=== PATIENT | male | born 2000 | race Two or more races ===

== ENCOUNTER 2024-12-09 03:14 | Emergency (ER) | payer SELFPAY ==
[2024-12-09 03:14] VITALS: BP 123/80; PULSE 84; RESP 20; TEMP 36.9; O2SAT 99; BMI 21.5
--- NOTE | 2024-12-09 03:30 | EDNOTE_ITS ---
ED Wound/Laceration-RME/HPI General Chief Complaint: Wound/Laceration Stated Complaint: LAC TO LEFT HAND Time Seen by Provider: 12/09/24 03:45 Arrival date/time: 12/09/24 03:14 RME / HPI RME / HPI narrative: This section includes all my notes and documentations, including HPI, PE, and ED course. Martín Holt MD HPI: 24 y/o male presents with actively bleeding laceration to the left hand s/p cutting himself with a [employer] x just [employer]. Patient was cutting wood while working on his shed. Denies any other injury. Can move and feel the thumb and fingers normally. No other complaints. ROS: All negative except as documented in HPI. Physical Exam: General: Alert and oriented. No acute distress. Eyes: Conjunctivae and lids clear. Lungs: No respiratory distress. Skin: Warm and dry. Neuro: Alert and oriented X 3. Left Hand: In the first web, there is a 4 cm full?skin thickness laceration with active bleeding. No NVT injury. At this point, diagnoses include: Laceration of left hand Treatment here included: Wound care, laceration repair, Augmentin, Tdap, ibuprofen, and two Tylenol #3. Laceration repair procedure note: The wound was prepped and draped in normal sterile fashion. Local anesthesia achieved with 1% lidocaine, 10 mL. Profuse irrigation performed with normal saline. Wound repaired with 7 simple sutures using 3-0 nylon. Good approximation and hemostasis achieved. No DVT injury. Topical ABX and dressing applied. Patient tolerated well with no complications. Significant improvement noted. Provided good wound care instructions. Based on my best medical judgment, made decision no further evaluation or treatment indicated at this time. Patient understands and agrees to the discharge instructions customized and printed, see below. Discharge instructions from Dr. Holt:? -- Your laceration was repaired with 7 stitches. -- Keep the current dressing intact for 24 hours. -- After 24 hours, change the dressing once daily. -- First remove the dressing gently.? If it does not come off easily, run water through it until it comes off easily. -- Then gently wash with soap and water. -- After completely drying, apply antibiotic ointment and new dressing. -- Elevate above the heart level today and tomorrow as much as possible.? Placing the hand on the head is a good method. This is extremely important. -- See a private doctor on 12/11/2024 for recheck. To make sure you are healing without any complications. To make sure there is no more serious injury, including tendon injury. You don't want to take chances with losing function of your hand. -- See a private doctor or return here in 7 days for suture removal.? Total of 7 stitches. -- Seek immediate medical care with not being able to move your thumb and fingers normally, fever, spreading redness from the wound, or with any concerns. Martín Holt MD Related Data Previous Rx's ?Medication ?Instructions ?Recorded aspirin 81 mg chewable tablet 81 mg PO DAILY #30 tabs 07/11/21 acetaminophen 300 mg-codeine 30 mg 2 tab PO Q8H PRN pa in #20 tabs 12/09/24 tablet amoxicillin 875 mg-potassium 1 tab PO BID 3 days #6 ta bs 12/09/24 clavulanate 125 mg tablet ibuprofen 600 mg tablet 600 mg PO TID PRN fever or p ain 12/09/24 #30 tabs Allergies Allergy/AdvReac Type Severity Reaction Status Date / Time No Known Allergies Allergy Verified 07/09/21 14:30 Review of Systems Review of Systems Systems Reviewed: All systems reviewed, normal except as documented ED Exam Narrative Physical exam: Refer to HPI Course Quality Measures none Orders Category Date Time Status Wound Care [Wound Care] NOW Care 12/09/24 04:31 Active ACETAMINOPHEN w/COD 300-30 [Tylenol w/Cod #3] Med 12/09/24 04:30 Discontinued 2 tab PO X1 ONE Amoxicillin/Pot Clav 875 [Augmentin 875] Med 12/09/24 04:30 Discontinued 1 tab PO X1 ONE Ampicillin/Sulbac Inj [Unasyn Inj] 1.5 gm Med 12/09/24 04:10 Discontinued SODIUM CHLORIDE 0.9% (Popper) [Ns 0.9% (P)] 50 ml IV X1 Bacitracin Oint pkt Med 12/09/24 04:30 Discontinued 1 gm TOP X1 ONE Ibuprofen Tab [Motrin Tab] Med 12/09/24 04:30 Discontinued 600 mg PO X1 ONE Ketorolac Inj [Toradol Inj] Med 12/09/24 04:10 Discontinued 30 mg IVP X1 ONE Lidocaine 1% 20 ml [Xylocaine 1% 20 ML] Med 12/09/24 04:10 Discontinued 20 ml INFL X1 ONE Lidocaine 1% 20 ml [Xylocaine 1% 20 ML] Med 12/09/24 04:31 Discontinued 20 ml INFL X1 ONE MethylPREDNISolone.* [SoluMEDROL Inj] Med 12/09/24 04:10 Discontinued 125 mg IVP X1 ONE Morphine Inj Med 12/09/24 04:10 Discontinued 4 mg IVP X1 ONE Ondansetron Inj [Zofran Inj] Med 12/09/24 04:10 Discontinued 4 mg IVP X1 ONE Sodium Chloride 0.9% 1000 ml [Ns] 1,000 ml Med 12/09/24 04:10 Discontinued IV 999 mls/hr TET,DIP/PERT AC (Adult)-Tdap [Boostrix Adult (Tdap) Med 12/09/24 04:10 Discontinued Vacc] 0.5 ml IMI .ONCE ONE Vital Signs Vital signs: Vital Signs Temperature 98.4 F 12/09/24 03:14 Pulse Rate 84 12/09/24 03:14 Respiratory Rate 20 12/09/24 03:14 Blood Pressure 123/80 12/09/24 03:14 Pulse Oximetry (%) 99 12/09/24 03:14 Oxygen Delivery Method Room Air 12/09/24 03:14 PROCEDURES: Laceration Laceration 1: Site: hand Side (If applicable): left Size (cm): 4 Description: linear Depth: simple, single layer Local Anesthetic: lidocaine 1% Pre-repair: wound explored, irrigated extensively, deep structures intact, extensive debridement and wound margins revised Skin layer closed with: nylon Suture size (cm): 3-0 Number of sutures: 7 Technique: simple, interrupted Wound / Laceration MDM Narrative MDM Narrative:: Scribe Attestation: INancy, am scribing for and in the presence of Dr. Holt. Provider Notation: Although this document has been carefully reviewed, there may still be some phonetic and other typographical errors.? These errors are purely grammatical due to imperfections in the software program and should not be construed in any way to? compromise the substance of the patient's medical care during this visit. 24 y/o male presents with actively bleeding laceration to the left hand s/p cutting himself with a [employer] x just [employer]. Patient was cutting wood while working on his shed. Denies any other injury. Can move and feel the thumb and fingers normally. No other complaints. Patient data External records reviewed:: [facility] previous records (Reviewed prior ED records from 07/09/21. Patient was seen for COVID-19.) Clinical information provided by:: patient Social determinants that could affect healthcare access:: none Patient has the following chronic illnesses:: None reported How is presenting disease/condition affected by chronic disease/condition?: no chronic disease Evaluation data The following diagnostics were reviewed and interpreted by me:: other (specify) (N/A) Lab and/or radiology exams considered but not ordered:: None Interpretation Summary: N/A Medications / Prescriptions Medications or Prescriptions considered but not ordered:: None Medication administrations:: Medication Administration History Discontinued Medications Acetaminophen/Codeine Phosphate (Acetaminophen W/Cod 300-30 Tablet) 2 tab PO X1 ONE Stop: 12/09/24 04:31 Last Admin: 12/09/24 05:02 Dose: 2 tab Documented By: SHERWIN Amoxicillin/Clavulanate Potassium (Amoxicillin/Pot Clav 875 Tablet) 1 tab PO X1 ONE Stop: 12/09/24 04:31 Last Admin: 12/09/24 05:02 Dose: 1 tab Documented By: SHERWIN Bacitracin (Bacitracin Oint 1 Gm Packet) 1 gm TOP X1 ONE Stop: 12/09/24 04:31 Last Admin: 12/09/24 05:03 Dose: 1 gm Documented By: DT Diphtheria/Tetanus/Acell Pertussis (Diphth,Pertuss(Acell),Tet Vac 0.5 Ml Syr- Adult) 0.5 ml IMi .ONCE ONE Stop: 12/09/24 04:11 Last Admin: 12/09/24 05:05 Dose: 0.5 ml Documented By: DT Ampicillin Sodium/Sulbactam (Sodium 1.5 gm/ Sodium Chloride) 50 mls @ 100 mls/hr IV X1 ONE Stop: 12/09/24 04:11 Last Admin: 12/09/24 05:10 Dose: Not Given Documented By: DT Non-Admin Reason: Cancelled by Provider Sodium Chloride (Ns) 1,000 mls @ 999 mls/hr IV .Q1H1M ONE Stop: 12/09/24 05:10 Last Admin: 12/09/24 05:11 Dose: Not Given Documented By: DT Non-Admin Reason: Cancelled by Provider Ibuprofen (Ibuprofen Tab 600 Mg Tablet) 600 mg PO X1 ONE Stop: 12/09/24 04:31 Last Admin: 12/09/24 05:03 Dose: 600 mg Documented By: DT Ketorolac Tromethamine (Ketorolac Inj 30 Mg/Ml Vial) 30 mg IVP X1 ONE Stop: 12/09/24 04:11 Last Admin: 12/09/24 05:10 Dose: Not Given Documented By: DT Non-Admin Reason: Cancelled by Provider Lidocaine HCl (Lidocaine Hcl 1% 20 Ml Vial) 20 ml INFL X1 ONE Stop: 12/09/24 04:11 Last Admin: 12/09/24 05:10 Dose: Not Given Documented By: DT Non-Admin Reason: Cancelled by Provider Lidocaine HCl (Lidocaine Hcl 1% 20 Ml Vial) 20 ml INFL X1 ONE Stop: 12/09/24 04:32 Last Admin: 12/09/24 05:06 Dose: 20 ml Documented By: DT Comments: administered by dr. holt Methylprednisolone Sodium Succinate (Methylprednisolone Sod Succ 62.5 Mg/Ml 2ml Vial) 125 mg IVP X1 ONE Stop: 12/09/24 04:11 Last Admin: 12/09/24 05:10 Dose: Not Given Documented By: DT Non-Admin Reason: Cancelled by Provider Morphine Sulfate (Morphine Sulf Inj 10 Mg/Ml Vial) 4 mg IVP X1 ONE Stop: 12/09/24 04:11 Last Admin: 12/09/24 05:11 Dose: Not Given Documented By: DT Non-Admin Reason: Cancelled by Provider Ondansetron HCl (Ondansetron Inj 2 Mg/Ml Inj 2 Ml) 4 mg IVP X1 ONE; Protocol Stop: 12/09/24 04:11 Last Admin: 12/09/24 05:11 Dose: Not Given Documented By: DT Non-Admin Reason: Cancelled by Provider Treatment here included: Wound care, laceration repair, Augmentin, Tdap, ibuprofen, and two Tylenol #3. Consultations Consultation(s) initiated? (list below): No Diagnosis Wound Differential Diagnosis: laceration, abrasion and avulsion of skin Most likely diagnosis given after review of the tests above:: Laceration of left hand Admission Indicated Admission indicated?: not indicated Explain why admission is indicated or not indicated:: With significant improvement and no condition needing emergent intervention, there was no indication for admission. Admission Request Was there a request for admission?: No Disposition Plan Disposition Plan: Discharge Discharge Attestation Discharge Attestation: The patient and all family members were given an opportunity to ask questions and understood the discharge instructions. Discharge instructions specifically effects, indications for sooner follow up or return to the emergency department, and the expected course of current diagnosis. Patient condition: Stable Discharge Plan Plan Patient Disposition: HOME (Self Care) Prescriptions/Referrals Prescriptions/Med Rec: New acetaminophen-codeine 300-30 mg tablet 2 tab PO Q8H MDD 6 PRN (Reason: pain) Qty: 20 0RF ibuprofen 600 mg tablet 600 mg PO TID PRN (Reason: fever or pain) Qty: 30 0RF amoxicillin-pot clavulanate 875-125 mg tablet 1 tab PO BID 3 Days Qty: 6 0RF No Action aspirin 81 mg Tablet,Chewable 81 mg PO DAILY Qty: 30 0RF Problem List Clinical Impression: Laceration of left hand Patient/Caregiver Discharge Instructions Discharge Activity: activity as tolerated Education Materials: ED Laceration, Hand: All Closures Additional Instructions: Discharge instructions from Dr. Holt:? -- Your laceration was repaired with 7 stitches. -- Keep the current dressing intact for 24 hours. -- After 24 hours, change the dressing once daily. -- First remove the dressing gently.? If it does not come off easily, run water through it until it comes off easily. -- Then gently wash with soap and water. -- After completely drying, apply antibiotic ointment and new dressing. -- Elevate above the heart level today and tomorrow as much as possible.? Placing the hand on the head is a good method. This is extremely important. -- See a private doctor on 12/11/2024 for recheck. To make sure you are healing without any complications. To make sure there is no more serious injury, including tendon injury. You don't want to take chances with losing function of your hand. -- See a private doctor or return here in 7 days for suture removal.? Total of 7 stitches. -- Seek immediate medical care with not being able to move your thumb and fingers normally, fever, spreading redness from the wound, or with any concerns. Print Language: Bangladeshi Stand Alone Forms: Dora Award Info., Patient Portal Info Letter
[2024-12-09] MEDS: AMOXICILLIN/POT CLAV 875 TABLET 1 TAB PO (05:02)
[2024-12-09] MEDS: ACETAMINOPHEN w/COD 300-30 TABLET 2 TAB PO (05:02)
[2024-12-09] MEDS: IBUPROFEN TAB 600 MG TABLET PO (05:03)
[2024-12-09] MEDS: BACITRACIN OINT 1 GM PACKET TOP (05:03)
[2024-12-09] MEDS: DIPHTH,PERTUSS(ACELL),TET VAC 0.5 ML SYR- ADULT IMi (05:05)
[2024-12-09] MEDS: LIDOCAINE HCL 1% 20 ML VIAL INFL (05:06)
[2024-12-09 05:12] VITALS: PULSE 98; RESP 16; TEMP 37; O2SAT 99
== END 2024-12-09 05:19 | disposition home or self-care (01) ==
PROVIDERS: Emergency Provider Emergency Medicine
DX: S61.412A Laceration without foreign body of left hand, initial encounter (principal); W27.0XXA Contact with workbench tool, initial encounter; Y93.89 Activity, other specified; Y92.008 Other place in unspecified non-institutional (private) residence as the place of occurrence of the external cause
CPT/HCPCS: 12002; 80048; 80307; 80320; 83735; 85025; 85610; 85730; 90471; 90715; 99284; J3490; A9270; G0480